=== PATIENT | female | born 1985 | race Hispanic/Latino ===

== ENCOUNTER 2019-02-14 14:44 | Observation (INO) | payer SELFPAY ==
[~2019-02-14] VITALS: Ht 162.6 cm; Wt 57.2 kg
[2019-02-14] MEDS ORDERED: IPRATROPIUM BROMIDE 0.02% 2.5 ML NEB NEB STA (14:55)
[2019-02-14] MEDS ORDERED: ALBUTEROL SULF 0.083% NEB SOLN 3 ML NEB NEB STA (14:55)
[2019-02-14] MEDS ORDERED: METHYLPREDNISOLONE SOD SUCC 125 MG/2ML VIAL IV STA (14:55)
[2019-02-14] MEDS ORDERED: MAGNESIUM SULFATE 2GM/50ML 50 ML IV ONE ×2 (15:05→15:15)
--- NOTE | 2019-02-14 15:17 | NUR ---
rec'd. pt in rm 9 neb tx in progress and iv access obtained. family at side. pt able to make needs known. bed low/locked. call morales in hand. Addendum: 02/14/19 at 1521 by SARAH presenting complaint; shortness of breath for a week and getting progressively worse
[2019-02-14 15:25] LABS: BASOPHILS # (AUTO) 0.1 (0.0-0.1); BASOPHILS % 0.3 % (0.0-1.0); EOSINOPHILS # (AUTO) 0.4 (0.0-0.4); EOSINOPHILS % 2.7 % (0.0-6.0); HEMATOCRIT 42.4 % (34.2-44.1); HEMOGLOBIN 14.6 g/dL (12.0-16.0); LYMPHOCYTES # (AUTO) 2.7 (1.0-3.2); LYMPHOCYTES % 18.2 % (18.0-39.1); MEAN CORPUSCULAR HEMOGLOBIN 27.9 pg (28-32); MEAN CORPUSCULAR HGB CONC 34.4 g/dL (31-35); MEAN CORPUSCULAR VOLUME 81.1 fL (81-99); MONOCYTES # (AUTO) 0.9 (0.2-0.8); MONOCYTES % 5.8 % (4.4-11.3); NEUTROPHILS # (AUTO) 10.9 (2.1-6.9); NEUTROPHILS % 72.7 % (38.7-80.0); PLATELET COUNT 285 x10e3/uL (140-360); RED BLOOD COUNT 5.23 x10e6/uL (3.6-5.1); RED CELL DISTRIBUTION WIDTH 12.9 % (11.7-14.4)
--- NOTE | 2019-02-14 15:37 | Diagnostic Imaging Report ---
Examination: Single AP view of the chest. COMPARISON: None. INDICATION: Asthma DISCUSSION: Lines/tubes: None. Lungs: The lungs are well inflated and clear. No pneumonia or pulmonary edema. Pleura: No pleural effusion or pneumothorax. Heart and mediastinum: The heart and the mediastinum are unremarkable. Bones and soft tissues: No acute bony abnormalities. IMPRESSION: 1. No acute cardiopulmonary abnormalities. Signed by: Dr. Luis Mathis M.D. on 02/14/2019 3:33 PM
[2019-02-14 15:41] LABS: ALANINE AMINOTRANSFERASE 11 IU/L (0-55); ALBUMIN 4.4 g/dL (3.5-5.0); ALBUMIN/GLOBULIN RATIO 1.2 (0.8-2.0); ALKALINE PHOSPHATASE 84 IU/L (40-150); ANION GAP 13.7 mmol/L (8-16); BLOOD UREA NITROGEN 14 mg/dL (7-26); BUN/CREATININE RATIO 18 (6-25); CALCIUM 10.2 mg/dL (8.4-10.2); CARBON DIOXIDE 25 mmol/L (22-29); CHLORIDE 104 mmol/L (98-107); CREATININE, SERUM 0.77 mg/dL (0.57-1.11); EST GLOMERULAR FILTRATION RATE > 60 ML/MIN (60-); GLUCOSE 75 mg/dL (74-118); POTASSIUM 3.7 mmol/L (3.5-5.1); SODIUM 139 mmol/L (136-145)
--- NOTE | 2019-02-14 15:42 | NUR ---
neb tx complete and pt tolerated well. r.t. in room; pt placed on 2 l of oxygen
[2019-02-14] MEDS ORDERED: ALBUTEROL SULF 0.083% NEB SOLN 3 ML NEB NEB PRN (16:00)
[2019-02-14] MEDS ORDERED: ALBUTEROL SULF 0.083% NEB SOLN 3 ML NEB NEB NR (16:00)
--- NOTE | 2019-02-14 16:14 | NUR ---
pt updated on pending admit/poc
[2019-02-14] MEDS ORDERED: PROAIR HFA INH8.5 GM IH (16:18)
--- OUTSIDE RECORDS SUMMARY | 2019-02-14 16:20 | XMS REPORT ---
Author Author [facility] Address Unknown Phone Unavailable Care Team Providers Care Boat Hoist Operator Helper Name Role Phone Yogi MCPHERSON Unavailable Unavailable Problems This patient has no known problems. Allergies, Adverse Reactions, Alerts This patient has no known allergies or adverse reactions. Medications This patient has no known medications. Results Test Description Test Time Test Comments Text Results Atomic Results Result Comments CHEST SINGLE (PORTABLE) 2019-02-14 15:32:00 [place] [address] Patient Name: CLAUDIO ELISE MR #: [id number] : 1985 Age/Sex: 33/F Req #: [id number] Adm Physician: Ordered by: STEW VILLARREAL FIRE ASSISTANT Report #: [id number] Location: ER Room/Bed: Procedure: [id number] DX/CHEST SINGLE (PORTABLE) Exam Date: 02/14/19 Exam Time: 1510 REPORT STATUS: Signed Examination: Single AP view of the chest. COMPARISON: None. INDICATION: Asthma DISCUSSION: Lines/tubes: None. Lungs: The lungs are well inflated and clear. No pneumonia or pulmonary edema. Pleura: No pleural effusion or pneumothorax. Heart and mediastinum: The heart and the mediastinum are unremarkable. Bones and soft tissues: No acute bony abnormalities. IMPRESSION: 1. No acute cardiopulmonary abnormalities. Signed by: Dr. Kyra Altman M.D. on 02/14/2019 3:33 PM Dictated By: KYRA ALTMAN MD 1533 Transcribed By: BEKA on 02/14/19 1533 COPY TO: STEW VILLARREAL NP
[2019-02-14 16:31] LABS: ABG PH 7.39 (7.31-7.41)
[2019-02-14 16:32] LABS: ABG HCO3 26 mmol/L (23-28); ABG PCO2 42 mmHg (41-51); ABG PO2 119 mmHg (80-105)
[2019-02-14] MEDS ORDERED: IPRAT-ALBUT 0.5-3 ML NEB (17:29)
[2019-02-14 17:31] VITALS: BP 121/77
[2019-02-14 17:32] VITALS: BP 121/77
--- NOTE | 2019-02-14 17:40 | NUR ---
PATIENT STATES NO HISTORY TO PROVIDE ON HER MOTHER OR FATHER.
--- NOTE | 2019-02-14 17:42 | NUR ---
PATIENT ARRIVED ON THE UNIT PER STRETCHER FROM THE ER. PATIENT IS IN STABLE CONDITION WITH NO S/S OF RESPIRATORY DISTRESS. PATIENT ON ROOM AIR AT 92% ON ROOM AIR- CONTINUOUS PULSE OX APPLIED. PATIENT DENIES PAIN. FAMILY MEMBER PRESENT IN ROOM. O2 SET UP FOR PATIENT AND IS AVAILABLE FOR PATIENT NEAR HER BEDSIDE. CALL LIGHT IS WITHIN REACH, PATIENT INSTRUCTED TO CALL FOR ASSISTANCE NEEDED.
[2019-02-14] MEDS ORDERED: ACETAMINOPHEN 325 MG TAB PO PRN (17:45)
[2019-02-14] MEDS ORDERED: SENNOSIDES 8.6 MG TAB PO PRN (17:45)
--- NOTE | 2019-02-14 17:45 | NUR ---
H&P cc: sob/cough HPI: 33yoF, PCP none, developed sob/cough and wheezing; not on long acting agents. PMH: asthma, bronchial PNA PSHx: none Allergies; see emr FH/HS; single; no cigs/illicits meds; see MAR ROS: no f/c/s/N/VD/GOMEZ/cp/skin rash/vision changes v/s; red PE: tired appearing anicteric ns1s2 Reduced BS: scattered wheezing; soft nt nd no e/t a&ox3; high skin dry n. affect labs/meds revd A/P: 33yoF Acute exa Asthma Cough Allergic rhinitis PLAN abx/steroids/antitussives/antihistaminescd/pepcid
[2019-02-14 17:48] VITALS: BP 121/77
[2019-02-14] MEDS ORDERED: SODIUM CHLORIDE 0.9% 250ML 250 ML ONE (18:14)
[2019-02-14] MEDS: DOXYCYCLINE 100MG/NS 100ML 100 ML IV SCH (18:19)
--- NOTE | 2019-02-14 18:45 | NUR ---
PATIENT IS AWAKE AND IN STABLE CONDITION WITH NO S/S OF RESPIRATORY DISTRESS. PATIENT DENIES PAIN. CONTINUOUS PULSE OX APPLIED. IV ANTIBIOTIC INFUSING. FAMILY MEMBER PRESENT IN ROOM. CALL LIGHT IS WITHIN REACH, PATIENT INSTRUCTED TO CALL FOR ASSISTANCE NEEDED. BEDSIDE REPORT GIVEN TO ONCOMING NURSE.
--- NOTE | 2019-02-14 19:00 | NUR ---
patient received awake, alert, sitting up in bed. respirations even and unlabored. pm assessment complete. patient instructed to call for assistance when needed.
[2019-02-14 19:30] VITALS: BP 121/74
[2019-02-14 20:02] VITALS: BP 121/74
[2019-02-14] MEDS: ALBUTEROL/IPRATROPIUM 3 ML NEB NEB SCH ×2 (20:30→23:35)
[2019-02-14] MEDS: BENZONATATE 100 MG CAP PO SCH (20:33)
[2019-02-14] MEDS ORDERED: ZOLPIDEM TARTRATE 5 MG TAB PO PRN (21:00)
--- NOTE | 2019-02-14 21:00 | NUR ---
iv #20 gauge placed to left ac at this time x 1 stick.
[2019-02-14] MEDS: GUAIFENESIN 600MG/DEXTROMETHORPHAN 30MG TABSR PO SCH (21:01)
[2019-02-14] MEDS: METHYLPREDNISOLONE SOD SUCC 125 MG/2ML VIAL IV SCH (21:01)
[2019-02-14] MEDS ORDERED: METHYLPREDNISOLONE SOD SUCC 125 MG/2ML VIAL IV SCH (22:00)
[2019-02-14 23:52] VITALS: BP 106/64
--- NOTE | 2019-02-15 | NUR ---
patient appears to be resting quietly. no acute distress noted. remains at the bedside.
[2019-02-15] MEDS: ALBUTEROL/IPRATROPIUM 3 ML NEB NEB SCH ×6 (02:50→23:30)
[2019-02-15 04:58] VITALS: BP 122/68
[2019-02-15] MEDS: METHYLPREDNISOLONE SOD SUCC 125 MG/2ML VIAL IV SCH (05:26)
[2019-02-15] MEDS: DOXYCYCLINE 100MG/NS 100ML 100 ML IV SCH ×2 (05:27→17:00)
[2019-02-15] MEDS: GUAIFENESIN 600MG/DEXTROMETHORPHAN 30MG TABSR PO SCH ×3 (05:27→20:58)
--- NOTE | 2019-02-15 06:50 | NUR ---
PATIENT IS AWAKE, ALERT, AND IN STABLE CONDITION WITH NO S/S OF RESPIRATORY DISTRESS. NO PAIN VOICED. IV ANTIBIOTIC INFUSING. CONTINUOUS PULSE OX APPLIED. FAMILY MEMBER PRESENT IN ROOM. CALL LIGHT IS WITHIN REACH, PATIENT INSTRUCTED TO CALL FOR ASSISTANCE NEEDED.
[2019-02-15 07:16] LABS: ANION GAP 14.1 mmol/L (8-16); BLOOD UREA NITROGEN 14 mg/dL (7-26); BUN/CREATININE RATIO 21 (6-25); CALCIUM 9.1 mg/dL (8.4-10.2); CARBON DIOXIDE 20 mmol/L (22-29); CHLORIDE 106 mmol/L (98-107); CREATININE, SERUM 0.67 mg/dL (0.57-1.11); EST GLOMERULAR FILTRATION RATE > 60 ML/MIN (60-); GLUCOSE 123 mg/dL (74-118); POTASSIUM 4.1 mmol/L (3.5-5.1); SODIUM 136 mmol/L (136-145)
[2019-02-15 07:22] LABS: LYMPHOCYTES # (AUTO) 0.5 (1.0-3.2); LYMPHOCYTES % 5.4 % (18.0-39.1); MEAN CORPUSCULAR HGB CONC 34.2 g/dL (31-35); MEAN CORPUSCULAR VOLUME 81.9 fL (81-99); MONOCYTES # (AUTO) 0.1 (0.2-0.8); MONOCYTES % 1.1 % (4.4-11.3); NEUTROPHILS % 93.3 % (38.7-80.0); PLATELET COUNT 239 x10e3/uL (140-360); RED BLOOD COUNT 4.64 x10e6/uL (3.6-5.1)
[2019-02-15 07:34] VITALS: BP 118/75
[2019-02-15 07:44] VITALS: BP 118/75
[2019-02-15] MEDS: BENZONATATE 100 MG CAP PO SCH ×3 (08:07→20:58)
[2019-02-15] MEDS ORDERED: LORATADINE 10 MG TAB PO SCH (09:00)
[2019-02-15 11:37] VITALS: BP 129/58
--- NOTE | 2019-02-15 12:44 | NUR ---
IM- progress note o/n; no events ROS: no f/c/s/N/VD/GOMEZ/cp/skin rash/vision changes v/s; revd PE: tired appearing anicteric ns1s2 Reduced BS: scattered wheezing; soft nt nd no e/t a&ox3; high skin dry n. affect labs/meds revd A/P: 33yoF Acute exa Asthma Cough Allergic rhinitis PLAN abx/steroids/antitussives/antihistaminescd/pepcid wean steroids; d/c planning Peter Alcazar MD, PhD.
[2019-02-15 15:58] VITALS: BP 109/71
--- NOTE | 2019-02-15 18:47 | NUR ---
PATIENT IS IN STABLE CONDITION WITH NO S/S OF RESPIRATORY DISTRESS. NO PAIN VOICED. CONTINUOUS PULSE OX APPLIED. FAMILY MEMBER PRESENT NEAR BEDSIDE. CALL LIGHT IS WITHIN REACH, PATIENT INSTRUCTED TO CALL FOR ASSISTANCE NEEDED. REPORT GIVEN TO ONCOMING NURSE.
--- NOTE | 2019-02-15 19:54 | NUR ---
Received patient without IV access. Charge nurse aware. Patient requests Christian from ER to insert IV. Christian states he will start after he's done in ER.
[2019-02-15 20:00] VITALS: BP 121/69
[2019-02-15] MEDS: METHYLPREDNISOLONE SOD SUCC 40 MG/ML VIAL 1ML IV SCH (21:59)
[2019-02-16] VITALS: BP 122/65
[2019-02-16] MEDS: ALBUTEROL/IPRATROPIUM 3 ML NEB NEB SCH ×2 (03:15→07:25)
[2019-02-16 04:00] VITALS: BP 111/59
[2019-02-16] MEDS: DOXYCYCLINE 100MG/NS 100ML 100 ML IV SCH (05:00)
[2019-02-16] MEDS: GUAIFENESIN 600MG/DEXTROMETHORPHAN 30MG TABSR PO SCH (05:00)
[2019-02-16 06:21] LABS: BASOPHILS % 0.1 % (0.0-1.0); HEMATOCRIT 36.6 % (34.2-44.1); HEMOGLOBIN 12.1 g/dL (12.0-16.0); LYMPHOCYTES # (AUTO) 0.6 (1.0-3.2); LYMPHOCYTES % 4.7 % (18.0-39.1); MEAN CORPUSCULAR HEMOGLOBIN 28.1 pg (28-32); MEAN CORPUSCULAR HGB CONC 33.1 g/dL (31-35); MEAN CORPUSCULAR VOLUME 85.1 fL (81-99); MONOCYTES # (AUTO) 0.2 (0.2-0.8); MONOCYTES % 1.6 % (4.4-11.3); NEUTROPHILS # (AUTO) 11.9 (2.1-6.9); NEUTROPHILS % 93.1 % (38.7-80.0); PLATELET COUNT 221 x10e3/uL (140-360); RED CELL DISTRIBUTION WIDTH 13.2 % (11.7-14.4)
[2019-02-16] MEDS ORDERED: MUCINEX DM ER1 EACH PO (07:09)
[2019-02-16] MEDS ORDERED: TESSALON PERLE100 MG PO (07:09)
[2019-02-16] MEDS ORDERED: VIBRAMYCIN100 MG PO (07:09)
[2019-02-16] MEDS ORDERED: LORATADINE10 MG PO (07:09)
[2019-02-16] MEDS ORDERED: PREDNISONE20 MG PO (07:09)
--- NOTE | 2019-02-16 07:11 | NUR ---
DIschage Summary: Principal dx: Acute exa Asthma Cough Allergic rhinitis Secondary dx: Allergic rhinitis Asthma PLAN abx/steroids/antitussives/antihistaminescd/pepcid wean steroids; d/c planning d/c home f/u 1 week stable d/c >35mins Peter Alcazar MD, PhD.
[2019-02-16 07:30] VITALS: BP 113/69
[2019-02-16 07:52] LABS: ANION GAP 12.2 mmol/L (8-16); BLOOD UREA NITROGEN 16 mg/dL (7-26); BUN/CREATININE RATIO 24 (6-25); CALCIUM 8.7 mg/dL (8.4-10.2); CARBON DIOXIDE 22 mmol/L (22-29); CHLORIDE 106 mmol/L (98-107); CREATININE, SERUM 0.68 mg/dL (0.57-1.11); EST GLOMERULAR FILTRATION RATE > 60 ML/MIN (60-); GLUCOSE 110 mg/dL (74-118); POTASSIUM 4.2 mmol/L (3.5-5.1); SODIUM 136 mmol/L (136-145)
[2019-02-16 08:00] VITALS: BP 113/69
[2019-02-16] MEDS: METHYLPREDNISOLONE SOD SUCC 40 MG/ML VIAL 1ML IV SCH (09:00)
--- NOTE | 2019-02-16 09:15 | NUR ---
PT DISCHARGED HOME,IV DCD WITHOUT REDNESS OR SWELLING,PRESCRIPTIONS ND INSTRUCTIONS GIVEN COPY ON CHART,TRAQNSPORTED TO AUTO VIA W/C
== END 2019-02-16 09:21 | disposition home or self-care (01) ==
LOC: ER 14:44 → ERHOLD 16:13 → MED/SURG3 17:14
PROVIDERS: ADMIT Internal Medicine; ATTEND Internal Medicine
DX: J45.51 Severe persistent asthma with (acute) exacerbation (principal)
CPT/HCPCS: 36415 ×3; 36600; 71045; 80048 ×2; 80053; 82805; 84702; 85025 ×3; 94640 ×5; 99284; G0378 ×3; J2920 ×2; J2930 ×2; J3475; J7050